=== PATIENT | female | born 1990 | race Caucasian/White ===

== ENCOUNTER → 2019-07-07 | Outpatient (CLI) | payer OTHER ==
[~2019-07-07] MED LIST: ALBU90OI INH; Cyclobenzaprine5 MG PO; KETO10 PO; Norco 5-325 Ta1 EACH PO; Prednisone20 MG PO; SPACE CHAMBER1 EACH MC; Zithromax250 MG PO
[2019-07-08 15:07] LABS: HPV 16 Negative (Negative); HPV 18 Negative (Negative); HPV OTHER HR TYPES Negative (Negative)
== END ==
LOC: LAB SHORT 13:10 → LAB 13:10
PROVIDERS: Registered Nurse Community Health
DX: Z12.4 Encounter for screening for malignant neoplasm of cervix (principal); N89.8 Other specified noninflammatory disorders of vagina
CPT/HCPCS: 87070; 87205; 87624; G0123

== ENCOUNTER 2020-11-10 09:15 | Emergency (ER) | payer OTHER ==
[~2020-11-10] VITALS: Ht 162.6 cm; Wt 58.5 kg
[2020-11-10] MEDS ORDERED: Keflex250 MG PO (09:45)
== END 2020-11-10 10:11 | disposition home or self-care (01) ==
LOC: ER 09:15
DX: S00.31XA Abrasion of nose, initial encounter (principal); F17.200 Nicotine dependence, unspecified, uncomplicated; V19.40XA Pedal cycle driver injured in collision with unspecified motor vehicles in traffic accident, initial encounter
CPT/HCPCS: 99282; A9270-GY

== ENCOUNTER → 2021-10-04 | Outpatient (CLI) | payer OTHER ==
[~2021-10-04] MED LIST changes: +Keflex250 MG PO
== END | disposition home or self-care (01) ==
LOC: LAB SHORT 10:55 → LAB 10:55
DX: R63.4 Abnormal weight loss (principal)
CPT/HCPCS: 87086

== ENCOUNTER 2024-05-11 11:44 | Emergency (ER) | payer OTHER ==
[~2024-05-11] VITALS: Ht 162.6 cm; Wt 54.4 kg
[2024-05-11 12:07] LABS: BASOPHILS ABSOLUTE AUTO 0.08 K/mm3 (0.00-0.23); BASOPHILS PERCENT AUTO 1 % (0-2); EOSINOPHILS ABSOLUTE AUTO 0.19 K/mm3 (0.00-0.68); EOSINOPHILS PERCENT AUTO 2 % (0-6); Hematocrit 39.3 % (33.0-51.0); Hemoglobin 12.9 g/dL (11.5-16.0); IMMATURE GRAN ABSOLUTE AUTO 0.04 K/mm3 (0.00-0.10); IMMATURE GRAN PERCENT AUTO 0 % (0-1); LYMPHOCYTES ABSOLUTE AUTO 2.49 K/mm3 (0.84-5.20); LYMPHOCYTES PERCENT AUTO 26 % (21-46); MONOCYTES ABSOLUTE AUTO 0.68 K/mm3 (0.16-1.47); MONOCYTES PERCENT AUTO 7 % (4-13); Mean Corpuscular HGB 31.6 pg (26.0-34.0); Mean Corpuscular HGB Conc 32.8 g/dL (31.5-36.5); Mean Corpuscular Volume 96 fL (80-100); Mean Platelet Volume 9.1 fL (9.1-12.4); NEUTROPHILS ABSOLUTE AUTO 6.11 K/mm3 (1.96-9.15); NEUTROPHILS PERCENT AUTO 64 % (41-73); Platelet Count 295 K/mm3 (150-400); RDW Coefficient Variation 11.8 % (11.7-14.2); RDW Standard Deviation 41.5 fL (35.1-46.3); Red Blood Cell Count 4.08 M/mm3 (3.80-5.20); White Blood Cell Count 9.59 K/mm3 (4.00-11.30)
[2024-05-11 12:29] LABS: Albumin, Blood 3.9 g/dL (3.4-5.0); Albumin/Globulin Ratio 1.1 (0.8-1.8); Bilirubin, Total 0.4 mg/dL (0.1-1.0); Calcium, Blood 8.4 mg/dL (8.5-10.1); Creatinine, Blood 0.75 mg/dL (0.40-1.00); Globulin, Blood 3.5 g/dL (2.2-4.0); Potassium, Blood 3.1 mmol/L (3.5-5.5); Total Protein, Blood 7.4 g/dL (6.4-8.2)
[2024-05-11] MEDS ORDERED: Ampicillin Sod/Sulbactam Sod 3 GM in NS 100 ML IV ONE (13:25)
[2024-05-11] MEDS ORDERED: Tetanus and Diphtheria Toxoid 0.5 ML INJ IM ONE (13:25)
[2024-05-11] MEDS ORDERED: Ketorolac Tromethamine 15mg Vial IV ONE (13:40)
[2024-05-11] MEDS ORDERED: Methocarbamol 500 MG Tab PO ONE (13:40)
[2024-05-11] MEDS ORDERED: AMOCLA875 PO (16:08)
[2024-05-11] MEDS ORDERED: HYDROcodone 5-APAP 325 TAB PO ONE ×2 (17:15→20:40)
[2024-05-11] MEDS ORDERED: HYDR1TAB94 PO (20:58)
[2024-05-11 21:30] VITALS: BP 149/82
== END 2024-05-11 21:40 | disposition home or self-care (01) ==
LOC: ER 11:44
PROVIDERS: Student in an Organized Health Care Education/Training Program
DX: S02.2XXB Fracture of nasal bones, initial encounter for open fracture (principal); S02.40CA Maxillary fracture, right side, initial encounter for closed fracture; S02.85XA Fracture of orbit, unspecified, initial encounter for closed fracture; S02.19XA Other fracture of base of skull, initial encounter for closed fracture; S01.511A Laceration without foreign body of lip, initial encounter; M50.31 Other cervical disc degeneration, high cervical region; M50.322 Other cervical disc degeneration at C5-C6 level; M50.321 Other cervical disc degeneration at C4-C5 level; V29.99XA Rider (driver) (passenger) of other motorcycle injured in unspecified traffic accident, initial encounter; F17.210 Nicotine dependence, cigarettes, uncomplicated
CPT/HCPCS: 12011; 40650; 70450; 70486; 71260; 72125; 72141; 74177; 80053; 85025; 90471; 90714; 96374-59; 99285-25; A9270; J0295; J1885; Q9967